=== PATIENT | female | born 2005 ===

== ENCOUNTER 2024-11-29 20:22 | Inpatient (IN) ==
[2024-11-29] MEDS ORDERED: LIDOCAINE 1% LOCAL 20 ML VIAL INFIL PRN (21:07)
--- NOTE | 2024-11-29 21:07 | Obstetrical Progress Note ---
Date of Service November 29, 2024 Assessment & Plan (1) Prolonged gestation: Plan: Pt doing well SROM on arrival Bedside sono; Vt VE; 1cm Results & Data Vital Signs (Past 12 Hours) Vital Signs Temp Pulse Resp BP 11/29/24 20:37 36.7 C 18 11/29/24 20:30 107 H 138/97
[2024-11-29] MEDS ORDERED: INFLUENZA VACC TS2024-25(6m+)/PF (IIV3) 0.5mL Syr IM ONE (21:08)
[2024-11-29 21:45] LABS: Hematocrit (blood only) 39.4 % (37.0-47.0); Hemoglobin 13.5 g/dl (12.0-16.0); Mean Corpuscular Hemoglobin 29.9 pg (25.0-34.0); Mean Corpuscular Hgb Conc 34.3 g/dL (32.0-36.0); Mean Corpuscular Volume 87.4 fL (80.0-100.0); Mean Platelet Volume 11.2 fL (9.4-12.4); Platelet Count 208 K/uL (130-400); RDW Coefficient of Variation 15.3 % (11.5-14.5); RDW Standard Deviation 49.1 fL (36.4-46.3); Red Blood Count 4.51 M/uL (4.20-5.40); White Blood Count 14.31 K/ul (4.8-10.8)
[2024-11-30] MEDS: SODIUM CHLORIDE 0.9% 1,000 ML IV SCH (01:10)
[2024-11-30] MEDS: SODIUM CHLORIDE 0.9% PF INJ 10 ML VIAL ONE (01:58)
[2024-11-30] MEDS: BUPIVACAINE 0.25% PF 30 ML VIAL ONE (01:58)
[2024-11-30] MEDS: LIDOCAINE 2%/EPINEPHRINE 1:200,000 20 ML PF ONE (01:58)
[2024-11-30] MEDS: fentANYL 2 MCG/ML BUPIVacaine 0.125%-NSS 100ML BAG ONE (01:59)
[2024-11-30] MEDS ORDERED: diphenhydrAMINE 50 MG/ML VIAL IV PRN (02:05)
[2024-11-30] MEDS ORDERED: BUPIVACAINE 0.25% PF 30 ML VIAL EPI PRN (02:05)
[2024-11-30] MEDS ORDERED: NALOXONE HCL 1 MG in SODIUM CHLORIDE 0.9% 1,000 ML IV PRN (02:05)
[2024-11-30] MEDS ORDERED: LIDOCAINE 2% MPF LOCAL 5 ML VIAL EPI PRN (02:05)
[2024-11-30] MEDS ORDERED: ONDANSETRON INJ 2 MG/ML 2 ML VIAL IV PRN (02:05)
[2024-11-30] MEDS ORDERED: ROPIVACAINE 0.5% PF 5 MG/ML 20 ML VIAL EPI PRN (02:05)
[2024-11-30] MEDS ORDERED: ePHEDrine sulfate 50 MG/ML AMP IV PRN (02:05)
[2024-11-30] MEDS ORDERED: SODIUM CHLORIDE 0.9% PF INJ 10 ML VIAL EPI PRN (02:05)
[2024-11-30] MEDS ORDERED: NALBUPHINE HCL INJ 10 MG/ML AMP IV PRN (02:05)
[2024-11-30] MEDS ORDERED: NALOXONE HCL 0.4 MG/1 ML VIAL/CARP IV PRN (02:05)
[2024-11-30] MEDS ORDERED: fentaNYL citrate PF 100 MCG/2 ML VIAL EPI PRN (02:05)
[2024-11-30] MEDS: fentaNYL citrate PF 100 MCG/2 ML VIAL ONE (02:26)
[2024-11-30] MEDS: ePHEDrine sulfate 50 MG/ML AMP ONE (02:26)
[2024-11-30] MEDS: BUPIVACAINE 0.25% PF 30 ML VIAL EPI STA (02:26)
[2024-11-30] MEDS: fentaNYL citrate PF 100 MCG/2 ML VIAL EPI STA (02:26)
[2024-11-30] MEDS: LIDOCAINE 2%/EPINEPHRINE 1:200,000 20 ML PF EPI STA (02:27)
[2024-11-30] MEDS: SODIUM CHLORIDE 0.9% PF INJ 10 ML VIAL EPI STA (02:27)
[2024-11-30] MEDS: OXYTOCIN 30 UNITS/NSS 30 UNITS/500 ML BAG IV PRN ×2 (02:48→19:20)
--- NOTE | 2024-11-30 07:37 | Obstetrical Progress Note ---
Date of Service November 30, 2024 Assessment & Plan (1) Prolonged gestation: Plan: Pt doing well FHR; CAT1 Ctx; 1-3min On Pitocin VE;5-6/-2 continue Pitocin augmentation Admission and Anticipated Discharge Date Admission Date: November 29, 2024 Results & Data Vital Signs (Past 12 Hours) Vital Signs Temp Pulse Resp BP Pulse Ox 11/30/24 07:35 82 98 11/30/24 07:33 89 120/76 11/30/24 07:30 95 H 98 11/30/24 07:25 86 95 11/30/24 07:20 86 96 11/30/24 07:19 88 116/73 11/30/24 07:15 84 96 11/30/24 07:10 90 96 11/30/24 07:05 84 115/68 96 11/30/24 07:00 92 H 95 11/30/24 06:55 89 95 11/30/24 06:50 89 97 11/30/24 06:48 89 116/66 11/30/24 06:45 82 95 11/30/24 06:40 86 97 11/30/24 06:35 85 96 11/30/24 06:33 85 138/88 11/30/24 06:30 95 H 97 11/30/24 06:25 98 H 98 11/30/24 06:20 100 H 98 11/30/24 06:18 93 H 131/81 11/30/24 06:15 95 H 98 11/30/24 06:10 91 H 97 11/30/24 06:05 92 H 96 11/30/24 06:02 102 H 113/70 11/30/24 06:00 92 H 96 11/30/24 05:55 90 96 11/30/24 05:50 88 95 11/30/24 05:47 90 110/68 11/30/24 05:46 36.8 C 18 11/30/24 05:45 92 H 96 11/30/24 05:40 89 97 11/30/24 05:35 78 97 11/30/24 05:33 89 118/67 11/30/24 05:30 80 95 11/30/24 05:25 101 H 95 11/30/24 05:20 82 95 11/30/24 05:18 89 108/58 L 11/30/24 05:15 87 95 11/30/24 05:10 74 95 11/30/24 05:05 83 95 11/30/24 05:03 90 109/61 11/30/24 05:00 16 11/30/24 05:00 83 94 11/30/24 04:55 79 95 11/30/24 04:50 85 94 11/30/24 04:47 90 108/57 L 11/30/24 04:45 79 94 11/30/24 04:40 80 95 11/30/24 04:35 86 97 11/30/24 04:33 77 117/58 L 11/30/24 04:30 16 11/30/24 04:30 83 95 11/30/24 04:25 76 94 11/30/24 04:20 94 H 95 11/30/24 04:17 88 112/62 11/30/24 04:15 96 H 94 11/30/24 04:10 83 94 11/30/24 04:05 78 94 11/30/24 04:03 80 107/56 L 11/30/24 04:00 36.7 C 18 11/30/24 04:00 77 18 94 11/30/24 03:55 84 94 11/30/24 03:50 84 94 11/30/24 03:48 80 105/58 L 11/30/24 03:45 78 94 11/30/24 03:40 74 94 11/30/24 03:39 81 94 11/30/24 03:35 73 94 11/30/24 03:33 77 106/57 L 94 11/30/24 03:30 73 18 94 11/30/24 03:26 73 94 11/30/24 03:25 76 94 11/30/24 03:21 78 94 11/30/24 03:20 80 95 11/30/24 03:17 87 108/61 11/30/24 03:16 87 94 11/30/24 03:15 76 94 11/30/24 03:10 88 95 11/30/24 03:09 89 94 11/30/24 03:05 79 114/65 95 11/30/24 03:03 79 94 11/30/24 03:00 18 11/30/24 03:00 78 96 11/30/24 02:55 86 95 11/30/24 02:53 76 94 01/08/25 02:50 89 96 11/30/24 02:48 81 129/76 11/30/24 02:45 18 11/30/24 02:45 81 97 11/30/24 02:40 81 95 11/30/24 02:35 93 H 96 11/30/24 02:33 95 H 114/67 11/30/24 02:30 18 11/30/24 02:30 100 H 96 11/30/24 02:25 93 H 96 11/30/24 02:20 82 18 98 11/30/24 02:17 104 H 118/75 11/30/24 02:15 18 11/30/24 02:15 18 11/30/24 02:15 93 H 11/30/24 02:15 90 119/70 96 11/30/24 02:13 92 H 120/74 11/30/24 02:11 100 H 117/66 11/30/24 02:10 101 H 18 96 11/30/24 02:09 103 H 121/68 11/30/24 02:07 91 H 118/70 11/30/24 02:05 18 11/30/24 02:05 18 11/30/24 02:05 95 H 11/30/24 02:05 100 H 122/78 97 11/30/24 02:03 99 H 126/74 11/30/24 02:01 93 H 117/69 11/30/24 02:00 89 18 96 11/30/24 01:59 88 124/70 11/30/24 01:57 99 H 131/73 11/30/24 01:56 56 L 153/93 H 11/30/24 01:55 108 H 97 11/30/24 01:54 18 11/30/24 01:54 36.9 C 18 11/30/24 01:50 111 H 99 11/30/24 01:46 93 H 145/95 H 11/30/24 01:45 92 H 99 11/30/24 00:15 18 11/30/24 00:15 36.8 C 18 11/29/24 22:49 18 11/29/24 22:49 36.6 C 18 11/29/24 20:37 36.7 C 18 11/29/24 20:30 107 H 138/97
[2024-11-30] MEDS: fentANYL 2 MCG/ML BUPIVacaine 0.125%-NSS 100ML BAG EPI PRN (09:57)
[2024-11-30] MEDS ORDERED: Nursing to Pharmacy Communication SCH (14:45)
[2024-11-30] MEDS ORDERED: LIDOCAINE 2%/EPINEPHRINE 1:200,000 20 ML PF ONE (15:09)
[2024-11-30] MEDS ORDERED: ROPIVACAINE 0.5% 5 MG/ML 30 ML VIAL ONE (15:09)
[2024-11-30] MEDS ORDERED: fentaNYL citrate PF 100 MCG/2 ML VIAL ONE (15:09)
--- NOTE | 2024-11-30 15:33 | Anesthesia Procedure Note ---
Date of Service November 30, 2024 Anesthesia Epidural Re-Dose Vital Signs Temp Pulse Resp BP Pulse Ox 36.8 C 131 H 20 117/72 97 11/30/24 15:00 11/30/24 15:28 11/30/24 15:00 11/30/24 15:03 11/30/24 15:28 Notes Pain Intensity: 8 Dilatation (cm): 10.0 Effacement (%): 100 Called by nursing to evaluate epidural as the patient is having increased pain. The epidural was re-dosed with the following medications (all medications via epidural route) after negative aspiration of the epidural catheter for CSF/HEME. 2ml 2% lidocaine with epi, 3mL ropivacaine 0.5% and 100 mcg fetanyl via epidural After Epidural Re-Dose Mental Status: alert / awake / arousable Pain: improving with treatment Airway Patency, RR, SpO2: stable & adequate BP & HR: stable & adequate
[2024-11-30] MEDS ORDERED: HYDROCORTISONE ACETATE 25 MG SUPP PR PRN (19:23)
[2024-11-30] MEDS ORDERED: bisacodyL 10 MG SUPP PR PRN (19:23)
[2024-11-30] MEDS ORDERED: DIPHTHER/TETAN/PERTUS Vaccine (Tdap, Adol/Adult) 0.5mL IM ONE (19:23)
[2024-11-30] MEDS ORDERED: oxyCODONE/ACETAMINOPHEN 5mg/325mg TAB PO PRN (19:23)
[2024-11-30] MEDS ORDERED: OXYTOCIN 30 UNITS/NSS 30 UNITS/500 ML BAG IV PRN (19:30)
--- NOTE | 2024-11-30 19:31 | Delivery Summary ---
Vaginal Delivery Summary Date of Service November 30, 2024 Vaginal Delivery Summary Patient is a 1 para 1. Has been followed in the office for care and delivery. Well dated with an early ultrasound. Admitted at 41 weeks gestation. Was induced due to ruptured membranes. Eventually she ended up on IV Pitocin with epidural. She had difficulty pushing. She would push for a while. Then rested for a while. Then redosed with an additional epidural. At 1 time considered having delivery via section. Was encouraged to just try for another hour. At which point she made significant progress. Had came down nicely. She crowned the head. Moderately difficult shoulder dystocia. Was remedied by flexion of the maternal thighs. Suprapubic pressure. Upward traction to get the posterior shoulder over the sacrum. Followed by downward traction which relieved the anterior shoulder. Infant was somewhat limp at . Cord was stripped and cut and the infant was attended to by the nurses present in the delivery room. Resuscitated quite quickly. Had good movement of both arms. Inspection of the perineum revealed 2 superficial lacerations 1 at 4:00 the other 1 at 7:00. These were repaired with interrupted [id number] sutures of Vicryl. The central removal was somewhat difficult. We had to run Pitocin. Massage to the fundus and give steady pressure. Placenta was removed intact. Quantitative blood loss was 157 mL. We did give 800 mcg of rectal Cytotec to help control post delivery bleeding.
--- NOTE | 2024-11-30 19:39 | Anesthesia Procedure Note ---
Date of Service November 30, 2024 Anesthesia Post Epidural Note Vital Signs Vital Signs: Temp Pulse Resp BP Pulse Ox 36.9 C 101 H 20 133/84 97 11/30/24 18:20 11/30/24 19:23 11/30/24 18:20 11/30/24 19:23 11/30/24 19:23 Pain Intensity Back: Pain Intensity: 5 Notes Mental Status: alert / awake / arousable and participated in evaluation Nausea / Vomiting: adequately controlled Pain: adequately controlled Airway Patency, RR, SpO2: stable & adequate BP & HR: stable & adequate Hydration State: stable & adequate Neuraxial Anesthesia: was administered and sensory block resolved Anesthetic Complications: no major complications apparent and Pt Satisfied with anesthetic care Epidural: Removed without complications and With tip intact
[2024-11-30] MEDS: IBUPROFEN 600 MG TAB PO PRN (21:22)
[2024-11-30] MEDS: BENZOCAINE 20% SPRY 85 APPLN/85 GM CAN EXT PRN (21:22)
[2024-11-30] MEDS: DOCUSATE SODIUM 100 MG CAP PO SCH (21:22)
[2024-11-30] MEDS: miSOPROStoL 200 MCG TAB PR ONE (21:23)
[2024-12-01] MEDS: ACETAMINOPHEN 325 MG TAB PO PRN (02:04)
[2024-12-01 06:57] LABS: Hematocrit (blood only) 35.7 % (37.0-47.0); Hemoglobin 12.2 g/dl (12.0-16.0); Mean Corpuscular Hemoglobin 30.1 pg (25.0-34.0); Mean Corpuscular Hgb Conc 34.2 g/dL (32.0-36.0); Mean Corpuscular Volume 88.1 fL (80.0-100.0); Mean Platelet Volume 11.1 fL (9.4-12.4); Platelet Count 182 K/uL (130-400); RDW Coefficient of Variation 15.2 % (11.5-14.5); RDW Standard Deviation 49.1 fL (36.4-46.3); Red Blood Count 4.05 M/uL (4.20-5.40); White Blood Count 19.31 K/ul (4.8-10.8)
[2024-12-01] MEDS: PRENATAL VITAMIN 1 TAB PO SCH (07:43)
--- NOTE | 2024-12-01 08:39 | Anesthesiology Consultation ---
Date of Service December 01, 2024 Assessment & Plan Chart Review Chart Review: Patient NOT seen in Pre Admission Testing and Acceptable Risk for Labor Epidural Consults Requested none ASA ASA2 Proposed Anesthesia Anesthesia Type: Labor Epidural Risk / Benefits Reviewed With: PT / POA / Parent / Guardian, Accepts Plan and Informed Consent Obtained Additional Notes Procedure and initial evaluation performed @ 145 on 11/30. Note was inadvertantly not entered in to the patient's chart at that time. History Height/Weight Height: 5 ft 9 in Weight: 89.811 kg Allergies Allergy/AdvReac Type Severity Reaction Status Date / Time No Known Allergies Allergy Unverified 11/29/24 20:48 Medications Home Medications Medication Instructions Recorded Confirmed Last Taken ferrous sulfate 27 mg iron tablet 125 mg PO DAILY 11/29/24 11/29/24 11/29/24 mecobalamin (vitamin B12) 1,000 1,000 mcg PO DAILY 11/29/24 11/29/24 11/28/24 mcg chewable tablet (B12 Active) [id number] 1 mg 1 tab PO DAILY 11/29/24 11/29/24 11/29/24 tablet Active Medications Generic Name Dose Route Start Last Admin Trade Name Freq PRN Reason Stop Dose Admin Acetaminophen 650 mg 11/30/24 19:23 12/01/24 07:43 Acetaminophen 325 Mg Tab PO 12/30/24 19:22 650 mg Q6H PRN Administration Pain/HILARIO/Fever Benzocaine 1 appln 11/30/24 19:23 11/30/24 21:22 Benzocaine 20% [place] 85 Appln/85 Gm Can EXT 12/30/24 19:22 85 appln PRN PRN Administration Perineal Discomfort Docusate Sodium 100 mg 11/30/24 21:00 12/01/24 07:43 Docusate Sodium 100 Mg Cap PO 12/30/24 20:59 100 mg DAILY@08,21 JOHNNY Administration Oxytocin 30 units in 500 mls @ 333.333 mls/hr 11/29/24 21:07 11/30/24 19:20 Pitocin 30 Units/Nss IV 12/29/24 21:06 20 units/hr .Q1H30M PRN 333.3 mls/hr Bleeding Control Administration Protocol 20 UNITS/HR Oxytocin 30 units in 500 mls @ 333 mls/hr 11/30/24 02:25 11/30/24 19:16 Pitocin 30 Units/Nss IV 12/02/24 02:24 19.98 units/hr .Q1H31M PRN 333 mls/hr Labor Induction/Augmentation Titration Protocol 19.98 UNITS/HR Ibuprofen 600 mg 11/30/24 19:23 12/01/24 07:43 Ibuprofen 600 Mg Tab PO 12/30/24 19:22 600 mg Q4H PRN Administration Pain/HILARIO/Cramping/Fever Prenat Multivit/Web Designer/Iron/Folic Ac 1 tab 12/01/24 08:00 12/01/24 07:43 Vitamin 1 Tab PO 12/31/24 07:59 1 tab DAILY@08 JOHNNY Administration Past Medical History Medical History (Updated 11/29/24 @ 21:29 by Gin Michele RN) Depression Anxiety No known health problems Exercise / Class Metabolic Activity II 4-5 Yardwork/Stairs/Walk up hill Past Surgical History Surgical History (Updated 11/29/24 @ 21:25 by Gin Michele RN) No history of previous surgery Past Anesthesia History No Hx of Anesthesia Complications and No Family Hx of Anesthesia Complications History of PONV No Hx of PONV and No Hx of Motion Sickness Social History Smoking Status: Never smoker Hx Alcohol Use: No Hx Substance Use: No Physical Exam Vital Signs Last Vital Signs Temp 36.7 C 12/01/24 05:00 Pulse 86 12/01/24 05:00 Resp 18 12/01/24 05:00 BP 117/76 12/01/24 05:00 Pulse Ox 98 12/01/24 05:00 O2 Del Method Room Air 12/01/24 05:00 ENMT Mouth: no dentition abnormality Thyromental Distance: > or= 3.5 Finger Breadths Mallampati Class: II Neck normal visual inspection Respiratory normal respiratory effort Auscultation: lungs clear to auscultation bilaterally Cardiovascular Rate/Rhythm: regular rate and regular rhythm Psychiatric Orientation: alert Testing Laboratory Results 12/01/24 06:26
--- NOTE | 2024-12-01 10:01 | Obstetrical Progress Note ---
Date of Service December 01, 2024 Assessment & Plan Admission and Anticipated Discharge Date Admission Date: November 29, 2024 Subjective Patient is seen and examined. She feels well, no complaints. Ambulating without dizziness Voiding without difficulty Tolerating regular diet with out N&V Bleeding is minimal No fever/ chills/ CP/ SOB/ N&V/ Leg pain Breast feeding without problems Vital Signs Temp Pulse Resp BP Pulse Ox O2 Del Method 12/01/24 07:30 36.6 C 80 18 122/80 100 Room Air 12/01/24 05:00 36.7 C 86 18 117/76 98 Room Air 12/01/24 01:20 36.6 C 78 18 114/73 98 Room Air Lab Results 11/29/24 11/29/24 12/01/24 Range/Units 21:22 21:25 06:26 WBC 14.31 H 19.31 H (4.8-10.8) K/ul RBC 4.51 4.05 L (4.20-5.40) M/uL Hgb 13.5 12.2 (12.0-16.0) g/dl Hct 39.4 35.7 L (37.0-47.0) % MCV 87.4 88.1 (80.0-100.0) fL MCH 29.9 30.1 (25.0-34.0) pg MCHC 34.3 34.2 (32.0-36.0) g/dL RDW Std Deviation 49.1 H 49.1 H (36.4-46.3) fL RDW Coeff of Kirk 15.3 H 15.2 H (11.5-14.5) % Plt Count 208 182 (130-400) K/uL MPV 11.2 11.1 (9.4-12.4) fL Amniotic Protein POS Treponema pallidum Ab Negative (Negative) PE: General: Alert, orientedx3, NAD Abd: soft, NT, fundus firm, below Umbilicus Perineum intact, Lochia rubra minimal Ext; NT, no edema AP: 18 yo s/p , ppd# 1 VSS Afebrile doing well CBC in am Continue routine care All questions were answered D/C home tomorrow Results & Data Vital Signs (Past 12 Hours) Vital Signs Temp Pulse Resp BP Pulse Ox O2 Del Method 12/01/24 07:30 36.6 C 80 18 122/80 100 Room Air 12/01/24 05:00 36.7 C 86 18 117/76 98 Room Air 12/01/24 01:20 36.6 C 78 18 114/73 98 Room Air
[2024-12-02 02:15] VITALS: TEMP 97.9
[2024-12-02] MEDS: bisacodyL 5 MG TABEC PO SCH (02:17)
[2024-12-02 07:23] LABS: Basophils # (auto) 0.06 K/uL (0.00-0.20); Basophils % (auto) 0.5 %; Eosinophils # (auto) 0.22 K/uL (0.00-0.50); Eosinophils % (auto) 1.7 %; Hematocrit (blood only) 36.5 % (37.0-47.0); Hemoglobin 12.4 g/dl (12.0-16.0); Immature Granulocytes # (auto) 0.13 K/uL (0.01-0.20); Lymphocytes # (auto) 2.27 K/uL (1.20-3.40); Lymphocytes % (auto) 17.5 %; Mean Corpuscular Hemoglobin 30.2 pg (25.0-34.0); Mean Corpuscular Volume 88.8 fL (80.0-100.0); Mean Platelet Volume 11.3 fL (9.4-12.4); Monocytes # (auto) 1.21 K/uL (0.11-0.59); Monocytes % (auto) 9.4 %; Neutrophils # (auto) 9.05 K/uL (1.40-6.50); Neutrophils % (auto) 69.9 %; Platelet Count 200 K/uL (130-400); RDW Coefficient of Variation 15.4 % (11.5-14.5); RDW Standard Deviation 50.2 fL (36.4-46.3); Red Blood Count 4.11 M/uL (4.20-5.40); White Blood Count 12.94 K/ul (4.8-10.8)
[2024-12-02 08:08] VITALS: PULSE 73; O2SAT 99
[2024-12-02 08:45] VITALS: BP 122/77; RESP 18
--- NOTE | 2024-12-02 08:48 | Obstetrical Progress Note ---
Date of Service December 02, 2024 Subjective Ambulation: ambulating normally Voiding: no voiding problems Passing Gas:: Yes Diet Tolerance:: regular diet Lochia:: Small Feeding Type:: breast feeding Current Pain Level(1-10): 0 doing well. plans for d/c today. Physical Exam Constitutional WD/WN, vitals as above Gastrointestinal (Abdomen) Inspection/Auscultation: abdomen normal to inspection abdomen soft and non-tender. fundus firm below U. Musculoskeletal Extremities: extremities normal to inspection Skin no rashes, warm and dry Neurologic patellar DTR's 2+ bilat, sensation intact Psychiatric A+Ox3, euthymic affect Results & Data Vital Signs (Past 12 Hours) Vital Signs Temp Pulse Resp BP Pulse Ox O2 Del Method 12/02/24 08:25 36.6 C 73 18 122/77 Room Air 12/02/24 07:57 36.6 C 73 16 122/81 99 Room Air 12/02/24 01:00 36.6 C 78 18 128/85 98 Room Air Laboratory Results Laboratory Results - last 72 hr 11/29/24 11/29/24 12/01/24 21:22 21:25 06:26 WBC 14.31 H 19.31 H RBC 4.51 4.05 L Hgb 13.5 12.2 Hct 39.4 35.7 L MCV 87.4 88.1 MCH 29.9 30.1 MCHC 34.3 34.2 RDW Std Deviation 49.1 H 49.1 H RDW Coeff of Kirk 15.3 H 15.2 H Plt Count 208 182 MPV 11.2 11.1 Immature Gran % (Auto) Neut % (Auto) Lymph % (Auto) Pierce % (Auto) Eos % (Auto) Baso % (Auto) Neut # (Auto) Lymph # (Auto) Pierce # (Auto) Eos # (Auto) Baso # (Auto) Immature Gran # (Auto) Amniotic Protein POS Treponema pallidum Ab Negative 12/02/24 06:59 WBC 12.94 H RBC 4.11 L Hgb 12.4 Hct 36.5 L MCV 88.8 MCH 30.2 MCHC 34.0 RDW Std Deviation 50.2 H RDW Coeff of Kirk 15.4 H Plt Count 200 MPV 11.3 Immature Gran % (Auto) 1.0 Neut % (Auto) 69.9 Lymph % (Auto) 17.5 Pierce % (Auto) 9.4 Eos % (Auto) 1.7 Baso % (Auto) 0.5 Neut # (Auto) 9.05 H Lymph # (Auto) 2.27 Pierce # (Auto) 1.21 H Eos # (Auto) 0.22 Baso # (Auto) 0.06 Immature Gran # (Auto) 0.13 Amniotic Protein Treponema pallidum Ab
[2024-12-02] MEDS: ACETAMINOPHEN W/CODEINE #3 1 TAB PO PRN (09:27)
== END 2024-12-02 16:20 | disposition home or self-care (01) | DRG 807 ==
LOC: OPB 20:22 → 4S1 20:27 → 4E2 11-30 21:50